=== PATIENT | male | born 1965 | race Caucasian/White ===

== ENCOUNTER 2016-09-29 11:11 | Emergency (ER) | payer MEDICARE, MEDICAID ==
[~2016-09-29 11:11] MED LIST: ATIVAN0.5 M1 PO; ATIVAN1 M2 PO; AZITHROMYCIN250 M1 PO; DARVOCET-N 1001 TAB PO; IBUPROFEN200 M2 PO; NEURONTIN100 MG PO; NORCO 5-325 TA1 EACH PO; SKELAXIN800 MG PO
[2016-09-29] MEDS ORDERED: ABILIFY10 M1 PO (11:44)
[2016-09-29 12:20] LABS: BASO % 0.2 % (0-2); EOS % 1.7 % (0-7); EOSINOPHIL ABSOLUTE COUNT 0.2 tho/cmm (0.0-0.7); HCT-HEMATOCRIT 49.7 % (36.0-53.5); HGB-HEMOGLOBIN 16.5 gm/dl (13.5-17.0); IMMATURE GRANULOCYTES ABSOLUTE 0.04 tho/cmm (0-0.03); IMMATURE GRANULOCYTES PERCENT 0.4 % (0-0.3); LYMPH % 22.3 % (20-45); LYMPH ABSOLUTE COUNT 2.3 tho/cmm (0.8-4.5); MCH (MEAN CORPUSCULAR HGB) 29.7 pg (28.0-32.0); MCHC MEAN CORPUSCULAR HGB CONC 33.2 % (32.0-36.0); MCV (MEAN CELL VOLUME) 89.4 fl (82.0-96.0); MEAN PLATELET VOLUME 9.8 cmc (9.4-12.4); MONO % 8.1 % (0-12); MONOCYTE ABSOLUTE COUNT 0.8 tho/cmm (0.0-1.2); NEUTROPHILS % 67.3 % (40-80); PLATELET COUNT 173 tho/cmm (150-450); RED BLOOD COUNT 5.56 mil/cmm (4.40-5.70); RED CELL DISTRIBUTION WIDTH 13.2 % (12.4-16.4); WHITE BLOOD COUNT 10.4 tho/cmm (4.0-10.0)
[2016-09-29 12:42] LABS: ALB/GLOB RATIO 0.8 (0.8-2.0); ALBUMIN 3.1 g/dl (3.5-5.0); ALKALINE PHOSPHATASE 97 U/L (33-138); ALT/SGPT 29 U/L (12-78); ANION GAP 10 mmol/L (0-20); AST/SGOT 20 U/L (10-40); BILIRUBIN,TOTAL 0.3 mg/dl (0.0-1.5); BLOOD UREA NITROGEN 13 mg/dl (6-24); CALCIUM 8.3 mg/dl (8.5-10.5); CARBON DIOXIDE-VENOUS 27 mmol/L (22-32); CHLORIDE 106 mmol/l (96-110); GLUCOSE 97 mg/dL (70-110); POTASSIUM 4.1 mmol/L (3.7-5.1); SODIUM 139 mmol/L (135-145); eGFR VALUE FOR BLACK >90 mL/Min
[2016-09-29] MEDS ORDERED: PROAIR HFA8.5 GM INH (13:08)
[2016-09-29] MEDS ORDERED: AZITHROMYCIN250 M1 PO (13:08)
== END 2016-09-29 13:19 ==
LOC: EDMED 11:11
PROVIDERS: Emergency Medicine
DX: J40 Bronchitis, not specified as acute or chronic (principal); F17.210 Nicotine dependence, cigarettes, uncomplicated; F41.9 Anxiety disorder, unspecified